=== PATIENT | female | born 1985 | race Caucasian/White ===

== ENCOUNTER 2019-01-08 08:48 | Emergency (ER) | payer BC, OTHER ==
[~2019-01-08] VITALS: Ht 149.8 cm; Wt 71.4 kg
--- NOTE | 2019-01-08 08:48 | NUR ---
Pt presents to ED with report of chest pain and has hx of months of occurances that she has [facility] to [facility], [facility], and [facility] clinic at [place]. Pt has negative exams of stress tests, imaging, and Holter Monitor. Pt is on Levaquin from [facility] WOODRUFF at [facility] for questionable infection. Pt seeks answers. Pt states chest pain left side anterior upper chest last night while sitting in bed. c/o SOA, denies sweating or nausea. Pt feels heart pounding in chest. Pt states she has had her thyroid labs done and are negative.
[2019-01-08] MEDS ORDERED: LORazepam INJ 2 MG/ML (ATIVAN) VIAL IVP ONE (09:00)
[2019-01-08] MEDS ORDERED: NS IV 1000 ML 1,000 ML IV SCH (09:00)
[2019-01-08 09:13] LABS: BASOPHILS % (AUTO) 1 % (0-10); EOSINOPHILS % (AUTO) 3 % (0-10); HEMATOCRIT 39 % (35-52); LYMPHOCYTES % (AUTO) 13 % (12-44); MEAN CORPUSCULAR HEMOGLOBIN 28 PG (25-34); MEAN CORPUSCULAR HGB CONC 33 G/DL (32-36); MEAN CORPUSCULAR VOLUME 84 FL (80-99); MEAN PLATELET VOLUME 10.6 FL (7.4-10.4); MONOCYTES % (AUTO) 5 % (0-12); PLATELET COUNT 307 10^3/uL (130-400); RED CELL DISTRIBUTION WIDTH 13.2 % (10.0-14.5); WHITE BLOOD COUNT 10.3 10^3/uL (4.3-11.0)
[2019-01-08 09:14] LABS: BASOPHILS # (AUTO) 0.1 10^3/uL (0.0-0.1); EOSINOPHILS # (AUTO) 0.3 10^3/uL (0.0-0.3); LYMPHOCYTES # (AUTO) 1.4 X 10^3 (1.0-4.0); MONOCYTES # (AUTO) 0.6 X 10^3 (0.0-1.0); NEUTROPHILS % (AUTO) 78 % (42-75)
--- NOTE | 2019-01-08 09:20 | NUR ---
Ativan 1 mg SIVP diluted given for her chest pain c/o per Dr order. Pt has an anxious appearance.
--- NOTE | 2019-01-08 09:23 | Diagnostic Imaging Report ---
INDICATION: Chest pain and tachycardia. Time of exam: 8:57 AM No prior studies are available for comparison. The heart size is normal. The pulmonary vascularity is unremarkable. The lungs are clear. No infiltrate, effusion or pneumothorax is detected. Impression: No acute cardiopulmonary process is detected. Dictated by: Dictated on workstation # [id number]
--- NOTE | 2019-01-08 09:34 | ED General ---
General Stated Complaint: CHEST PAIN History of Present Illness Date Seen by Provider: Jan 08, 2019 Time Seen by Provider: 09:30 Initial Comments Patient presenting to the emergency department for evaluation of chest pain that has been an off and on issue for years. She says this morning she felt intense chest pressure while she was driving her car. She had no exertional component to it. She said it occurred last night as well while she was trying to sleep. She says it feels like intense pressure that makes her short of breath and diaphoretic and makes her heart race. It is better now she appears nontoxic with normal vital signs. She says she has been seen multiple places for this including emergency rooms as well as admissions at [place] and [facility] her she received echocardiograms stress test and other testing and everything has come back normal. Allergies and Home Medications Allergies Coded Allergies: No Known Drug Allergies (Unverified , 01/08/19) Patient Home Medication List Home Medication List Reviewed: Yes Review of Systems Review of Systems Constitutional: no symptoms reported EENTM: no symptoms reported Respiratory: short of breath Cardiovascular: chest pain Gastrointestinal: no symptoms reported Genitourinary: no symptoms reported Musculoskeletal: no symptoms reported Skin: no symptoms reported Psychiatric/Neurological: No Symptoms Reported All Other Systems Reviewed Negative Unless Noted: Yes Physical Exam Vital Signs Vital Signs - First Documented 01/08/19 08:48 Temp 36.3 Pulse 94 Resp 20 B/P (MAP) 132/81 (98) O2 Delivery Room Air Capillary Refill : Height, Weight, BMI Height: '" Weight: lbs. oz. kg; BMI Method: General Appearance: No Apparent Distress, WD/WN HEENT: PERRL/EOMI Neck: Supple Respiratory: Lungs Clear, No Respiratory Distress Gastrointestinal: Non Tender, Soft Back: Normal Inspection Extremity: Normal Capillary Refill, Normal Inspection Neurologic/Psychiatric: Alert, Oriented x3 Skin: Warm/Dry Progress/Results/Core Measures Suspected Sepsis SIRS Temperature: Pulse: Respiratory Rate: Laboratory Tests 01/08/19 09:06: White Blood Count 10.3 Blood Pressure / Mean: Laboratory Tests 01/08/19 09:06: Creatinine 0.85, Platelet Count 307, Total Bilirubin 0.5 Results/Orders Lab Results Laboratory Tests Test 01/08/19 09:06 Range/Units White Blood Count 10.3 4.3-11.0 10^3/uL Red Blood Count 4.68 4.35-5.85 10^6/uL Hemoglobin 13.0 11.5-16.0 G/DL Hematocrit 39 35-52 % Mean Corpuscular Volume 84 80-99 FL Mean Corpuscular Hemoglobin 28 25-34 PG Mean Corpuscular Hemoglobin Concent 33 32-36 G/DL Red Cell Distribution Width 13.2 10.0-14.5 % Platelet Count 307 130-400 10^3/uL Mean Platelet Volume 10.6 H 7.4-10.4 FL Neutrophils (%) (Auto) 78 H 42-75 % Lymphocytes (%) (Auto) 13 12-44 % Monocytes (%) (Auto) 5 0-12 % Eosinophils (%) (Auto) 3 0-10 % Basophils (%) (Auto) 1 0-10 % Neutrophils # (Auto) 8.0 H 1.8-7.8 X 10^3 Lymphocytes # (Auto) 1.4 1.0-4.0 X 10^3 Monocytes # (Auto) 0.6 0.0-1.0 X 10^3 Eosinophils # (Auto) 0.3 0.0-0.3 10^3/uL Basophils # (Auto) 0.1 0.0-0.1 10^3/uL D-Dimer 0.30 0.00-0.49 UG/ML Sodium Level 138 135-145 MMOL/L Potassium Level 3.9 3.6-5.0 MMOL/L Chloride Level 99 98-107 MMOL/L Carbon Dioxide Level 27 21-32 MMOL/L Anion Gap 12 5-14 MMOL/L Blood Urea Nitrogen 7 7-18 MG/DL Creatinine 0.85 0.60-1.30 MG/DL Estimat Glomerular Filtration Rate > 60 BUN/Creatinine Ratio 8 Glucose Level 98 70-105 MG/DL Calcium Level 9.5 8.5-10.1 MG/DL Corrected Calcium 9.3 8.5-10.1 MG/DL Magnesium Level 1.8 1.6-2.4 MG/DL Total Bilirubin 0.5 0.1-1.0 MG/DL Aspartate Amino Transf (AST/SGOT) 14 5-34 U/L Alanine Aminotransferase (ALT/SGPT) 11 0-55 U/L Alkaline Phosphatase 92 40-136 U/L Troponin I < 0.30 <0.30 NG/ML Pro-B-Type Natriuretic Peptide 23.0 <75.0 PG/ML Total Protein 7.6 6.4-8.2 GM/DL Albumin 4.2 3.2-4.5 GM/DL Lipase 30 8-78 U/L My Orders Orders - EMELY HAYWOOD DO Fibrin Degradation Products (01/08/19 08:56) Cbc With Automated Diff (01/08/19 08:56) Comprehensive Metabolic Panel (01/08/19 08:56) Lipase (01/08/19 08:56) Magnesium (01/08/19 08:56) Probnp Fs (01/08/19 08:56) Troponin I (01/08/19 08:56) Chest 1 View Ap/Pa Only (01/08/19 08:56) Lorazepam Injection (Ativan Injection) (01/08/19 09:00) Ns Iv 1000 Ml (Sodium Chloride 0.9%) (01/08/19 09:00) Medications Given in ED Current Medications Medications Dose Ordered Sig/Danielito Route Start Time Stop Time Status Last Admin Dose Admin Lorazepam 1 mg ONCE ONCE IVP 01/08/19 09:00 01/08/19 09:01 DC 01/08/19 09:20 1 MG Vital Signs/I&O 01/08/19 08:48 Temp 36.3 Pulse 94 Resp 20 B/P (MAP) 132/81 (98) O2 Delivery Room Air Capillary Refill : Progress Note : Progress Note Patient with chest pressure along with diaphoresis tachycardia and shortness of breath. I suspect this could be anxiety related but will go ahead and do labs and imaging treat symptoms and observe. Initial workup was normal and I told her that we do need to do a repeat troponin level as she presented very quickly after her symptoms occurred. She refused stating that she feels well after receiving the Ativan and would like to go home. Told patient that I cannot completely rule out cardiac ischemia. The emergency room and the repeat negative troponin would help out pain decreasing the chances that her pain is from a cardiac etiology. Patient verbalized understanding and accepted the risks of and disability by not having a complete emergency room workup. Marti said I told her that cardiac ischemia is less likely than that he may be getting an EGD or seeing a psychiatrist may help her out. She was willing to be treated for anxiety I told her to follow with her primary care provider and get started on an antidepressant and I can prescribe when necessary Ativan if she feels the symptoms again she could try it. Patient told to follow primary care provider within 72 hours come back to the ED sooner with worsening pain shortness of breath or other general concerns. Patient aware and agreeable with plan for discharge and verbalized understanding of the above instructions. Departure Impression Primary Impression: Chest pain at rest Disposition: HOME, SELF-CARE Condition: Stable Departure-Patient Inst. Referrals: NO,LOCAL PHYSICIAN (PCP/Family) Primary Care Physician Patient Instructions: Chest Pain (DC) EEMLY HAYWOOD DO Jan 08, 2019 09:34
[2019-01-08 09:51] LABS: POTASSIUM 3.9 MMOL/L (3.6-5.0); SODIUM 138 MMOL/L (135-145)
[2019-01-08 09:52] LABS: ALANINE AMINOTRANSFERASE 11 U/L (0-55); ALBUMIN 4.2 GM/DL (3.2-4.5); ALKALINE PHOSPHATASE 92 U/L (40-136); BILIRUBIN,TOTAL 0.5 MG/DL (0.1-1.0); BUN/CREATININE RATIO 8; CALCIUM 9.5 MG/DL (8.5-10.1); CARBON DIOXIDE 27 MMOL/L (21-32); CHLORIDE 99 MMOL/L (98-107); CREATININE SERUM 0.85 MG/DL (0.60-1.30); GFR ESTIMATED > 60; GLUCOSE 98 MG/DL (70-105); LIPASE 30 U/L (8-78); MAGNESIUM 1.8 MG/DL (1.6-2.4); TOTAL PROTEIN 7.6 GM/DL (6.4-8.2)
[2019-01-08] MEDS ORDERED: LORA-405 SL (10:17)
[2019-01-08 10:42] VITALS: BP 94/53
--- NOTE | 2019-01-08 10:42 | NUR ---
Pt discharged at this time after 550 ml NS infused during ED stay and dose of Ativan 0.5 mg given earlier per eMAR. Pt reports the chest pain has reduced from "8" to "3". Pt required add'l reading and reiterating Dr's discharge plan as short supply script for Ativan SL given. Pt verbalizes understanding of instructions and reminders to follow up with HER PCP as she has been hru numerous ER's and has had some cardiac testing reported as negative stress test and negative Holter Monitor. Pt advised to avoid stimulants, i.e. cigarettes, caffeine, Energy drinks. reports pt was a heavy Dr Collier drinker and is cutting back. Quit smoking 2 mo ago.
== END 2019-01-08 10:42 | disposition home or self-care (01) ==
LOC: EDUNIT# 08:48 → ER FS 08:50
DX: R07.9 Chest pain, unspecified (principal)
CPT/HCPCS: 36415; 71045; 80053; 83690; 83735; 83880; 84484; 85025; 85379; 93005; 96361; 96374

== ENCOUNTER → 2019-02-15 | Outpatient (CLI) | payer BC ==
[~2019-02-15] MED LIST: CATHETER FLUSH 10 ML SYR IV PRN; HOLD METFORMIN - RECEIVED CONTRAST 20 ML VIAL IV SCH; IOHEXOL 350 MG/ML 100 ML (OMNIPAQUE 350) VIAL IV ONE; LORA-405 SL; NS 100 ML (IVPB) BAG IV ONE
--- NOTE | 2019-02-15 13:38 | Diagnostic Imaging Report ---
PROCEDURE: CT chest with contrast only. TECHNIQUE: Multiple contiguous axial images were obtained through the chest after administration of intravenous contrast. Auto Exposure Controls were utilized during the CT exam to meet ALARA standards for radiation dose reduction. INDICATION: Right anterior chest pain and lower lateral chest pain as well as shortness of breath. COMPARISON: No prior CT chest studies are available for comparison. FINDINGS: No axillary lymphadenopathy is seen. No mediastinal or hilar lymphadenopathy is detected. No pericardial or pleural fluid is identified. No pulmonary infiltrates, nodules, or masses are detected. There is no pneumothorax. Ribs appear to be intact. No rib fracture is seen. Upper abdomen is unremarkable. IMPRESSION: Unremarkable CT chest with contrast. No acute abnormality is detected. Dictated by: Dictated on workstation # [id number]
== END ==
LOC: RAD 12:00
PROVIDERS: ATTEND Nurse Practitioner Family
DX: R07.82 Intercostal pain (principal); R06.02 Shortness of breath
CPT/HCPCS: 71260

== ENCOUNTER → 2019-05-03 | Outpatient (CLI) | payer BC ==
[~2019-05-03] MED LIST changes: -CATHETER FLUSH 10 ML SYR IV PRN; -HOLD METFORMIN - RECEIVED CONTRAST 20 ML VIAL IV SCH; -IOHEXOL 350 MG/ML 100 ML (OMNIPAQUE 350) VIAL IV ONE; -NS 100 ML (IVPB) BAG IV ONE
== END ==
LOC: CARD 13:40
PROVIDERS: ATTEND Internal Medicine Interventional Cardiology
DX: E66.9 Obesity, unspecified (principal); R00.2 Palpitations; F17.210 Nicotine dependence, cigarettes, uncomplicated
CPT/HCPCS: 93306

== ENCOUNTER 2019-05-21 | Outpatient (RCR) | payer BC | END 2019-07-22 | disposition home or self-care (01) | LOC: CARD | PROVIDERS: ATTEND Internal Medicine Interventional Cardiology | DX: R00.2 Palpitations (principal); R55 Syncope and collapse ==

== ENCOUNTER → 2019-10-31 | Outpatient (CLI) | payer BC ==
[~2019-10-31] MED LIST changes: +CATHETER FLUSH 10 ML SYR IV PRN; +HOLD METFORMIN - RECEIVED CONTRAST 20 ML VIAL IV SCH; +IOHEXOL 350 MG/ML 100 ML (OMNIPAQUE 350) VIAL IV ONE; +NS 100 ML (IVPB) BAG IV ONE
--- NOTE | 2019-10-31 13:03 | Diagnostic Imaging Report ---
PROCEDURE: CT head without contrast. TECHNIQUE: Multiple contiguous axial images were obtained through the brain without the use of intravenous contrast. Auto Exposure Controls were utilized during the CT exam to meet ALARA standards for radiation dose reduction. INDICATION: Intermittent headache for 4 weeks. COMPARISON: No prior studies are available for comparison. FINDINGS: The ventricles and sulci are within normal limits. No sulcal effacement or midline shift is identified. No acute intra-axial or extra-axial hemorrhage is detected. The cisterns are patent. The visualized paranasal sinuses are clear. IMPRESSION: No acute intracranial process is detected. Dictated by: Dictated on workstation # [id number]
== END ==
LOC: RAD FS 11:56
PROVIDERS: ATTEND Nurse Practitioner
DX: R42 Dizziness and giddiness (principal); R51 Headache; R41.3 Other amnesia
CPT/HCPCS: 70450

== ENCOUNTER → 2019-11-01 | Outpatient (CLI) | payer BC ==
[2019-11-01] VITALS (28 sets, daily range): BP systolic 105–121; BP diastolic 3–89
[~2019-11-01] VITALS: Ht 58 cm; Wt 71.4 kg
[~2019-11-01] MED LIST changes: -CATHETER FLUSH 10 ML SYR IV PRN; -HOLD METFORMIN - RECEIVED CONTRAST 20 ML VIAL IV SCH; -IOHEXOL 350 MG/ML 100 ML (OMNIPAQUE 350) VIAL IV ONE; -NS 100 ML (IVPB) BAG IV ONE; +NS IV 1000 ML 1,000 ML IV ONE; +NS IV 1000 ML 1,000 ML ONE
--- NOTE | 2019-11-01 13:56 | Cardiology Tilt Table Test ---
Cardiology-Tilt Table Test Tilt Table Test Date 11/01/19 Baseline Vitals Vital Signs Date Time Temp Pulse Resp B/P (MAP) Pulse Ox O2 Delivery O2 Flow Rate FiO2 11/01/19 07:34 36.8 72 18 112/70 (84) 100 Room Air Vital Signs VS - Last 72 Hours, by Label 11/01/19 11/01/19 11/01/19 11/01/19 07:34 07:37 07:39 07:40 Temp 36.8 Pulse 72 71 71 70 Resp 18 18 18 18 B/P (MAP) 112/70 (84) 118/85 (96) 119/80 (93) Pulse Ox 100 100 100 100 O2 Delivery Room Air Room Air Room Air Room Air 11/01/19 11/01/19 11/01/19 11/01/19 07:41 07:42 07:43 07:44 Pulse 70 67 65 68 Resp 18 18 18 18 B/P (MAP) 113/82 (92) 113/82 (92) 121/82 (95) 117/83 (94) Pulse Ox 100 100 100 100 O2 Delivery Room Air Room Air Room Air Room Air 11/01/19 11/01/19 11/01/19 11/01/19 07:45 07:46 07:47 07:48 Pulse 67 69 70 69 Resp 18 18 18 18 B/P (MAP) 118/80 (93) 116/84 (95) 117/80 (92) 108/68 (81) Pulse Ox 100 100 100 100 O2 Delivery Room Air Room Air Room Air Room Air 11/01/19 11/01/19 11/01/19 11/01/19 07:49 07:50 07:51 07:52 Pulse 62 63 73 63 Resp 18 18 18 18 B/P (MAP) 108/72 (84) 109/68 (82) 108/68 (81) 109/89 (96) Pulse Ox 100 100 100 100 O2 Delivery Room Air Room Air Room Air Room Air 11/01/19 11/01/19 11/01/19 11/01/19 07:53 07:54 07:55 07:56 Pulse 62 65 73 65 Resp 18 18 18 18 B/P (MAP) 109/89 (96) 108/74 (85) 110/75 (87) 109/72 (84) Pulse Ox 100 100 100 100 O2 Delivery Room Air Room Air Room Air Room Air 11/01/19 11/01/19 11/01/19 11/01/19 07:57 07:58 07:59 08:00 Pulse 66 65 67 66 Resp 18 18 18 18 B/P (MAP) 107/74 (85) 108/73 (85) 107/73 (84) 111/75 (87) Pulse Ox 100 100 100 100 O2 Delivery Room Air Room Air Room Air Room Air 11/01/19 11/01/19 11/01/19 11/01/19 08:01 08:02 08:03 08:04 Pulse 67 66 70 69 Resp 18 18 18 18 B/P (MAP) 112/77 (89) 110/75 (87) 111/75 (87) 105/73 (84) Pulse Ox 100 100 100 100 O2 Delivery Room Air Room Air Room Air Room Air 11/01/19 08:05 Pulse 73 Resp 18 B/P (MAP) 105/3 (37) Pulse Ox 100 O2 Delivery Room Air Patient was tilted to 75 degrees for [10] minutes, then returned to supine position During test, patient was: asymptomatic In Conclusion;: Negative Tilt Table Test Corinne MIKE MD Nov 01, 2019 13:56
--- NOTE | 2019-11-01 13:56 | History & Physicial-Cardiolgy ---
HPI-Cardiology Cardiology Consultation: Date of Consultation 11/01/19 Date of Admission Attending Physician Corinne Muhammad MD Admitting Physician [facility] Consulting Physician Corinne MUHAMMAD MD HPI: Time Seen by a Provider: 08:00 Chief Complaint: Syncope Syncope Review of Systems-Cardiology Review of Systems Constitutional: As described under HPI; No As described under HPI, No no symptoms reported, No chills, No fever, No lightheadedness Eyes: No As described under HPI, No no symptoms reported, No blindness, No blurred vision, No contact lenses, No drainage, No decreased acuity, No foreign body sensation, No pain, No vision change Ears/Nose/Throat: No As described under HPI, No no symptoms reported, No chronic hearing loss, No ear discharge, No ear pain, No nasal drainage, No ulcerations Respiratory: No no symptoms reported; As described under HPI; No As described under HPI, No cough, No orthopnea, No shortness of breath, No SOB with excertion Cardiovascular: No no symptoms reported; As described under HPI; No As described under HPI, No chest pain, No edema, No irregular heart rate, No lightheadedness, No palpitations; syncope Gastrointestinal: No no symptoms reported, No As described under HPI, No abdomen distended, No abdominal pain, No blood streaked bowels, No constipation, No diarrhea, No nausea, No vomiting, No stool coloration changes Genitourinary: No As described under HPI, No burning, No dysuria, No discharge, No frequency, No flank pain, No hematuria, No urgency : Yes : No Skin: No rash, No skin related problems, No ulcerations Psychiatric/Neurological: No anxiety, No depression, No seizure, No focal weakness, No syncope Hematologic: No bleeding abnormalities [id number] Hx Patient Social History Alcohol Use: Denies Use Recreational Drug Use: No Smoking Status: Former Smoker Type Used: Cigarettes 2nd Hand Smoke Exposure: Yes Recent Foreign Travel: No Immunizations Up To Date Tetanus Booster (TDap): Unknown Past Medical History PMH As described under Assessment. Allergies and Home Medications Allergies Coded Allergies: No Known Drug Allergies (Unverified , 01/08/19) Home Medications Lorazepam 1 Mg Tablet, 1 MG SL Q6H PRN for ANXIETY Prescribed by: EMELY HAYWOOD on 01/08/19 1017 Patient Home Medication List Home Medication List Reviewed: Yes Physical Exam-Cardiology Physical Exam Vital Signs/I&O 11/01/19 11/01/19 11/01/19 11/01/19 07:34 07:37 07:39 07:40 Temp 36.8 Pulse 72 71 71 70 Resp 18 18 18 18 B/P (MAP) 112/70 (84) 118/85 (96) 119/80 (93) Pulse Ox 100 100 100 100 O2 Delivery Room Air Room Air Room Air Room Air 11/01/19 11/01/19 11/01/19 11/01/19 07:41 07:42 07:43 07:44 Pulse 70 67 65 68 Resp 18 18 18 18 B/P (MAP) 113/82 (92) 113/82 (92) 121/82 (95) 117/83 (94) Pulse Ox 100 100 100 100 O2 Delivery Room Air Room Air Room Air Room Air 11/01/19 11/01/19 11/01/19 11/01/19 07:45 07:46 07:47 07:48 Pulse 67 69 70 69 Resp 18 18 18 18 B/P (MAP) 118/80 (93) 116/84 (95) 117/80 (92) 108/68 (81) Pulse Ox 100 100 100 100 O2 Delivery Room Air Room Air Room Air Room Air 11/01/19 11/01/19 11/01/19 11/01/19 07:49 07:50 07:51 07:52 Pulse 62 63 73 63 Resp 18 18 18 18 B/P (MAP) 108/72 (84) 109/68 (82) 108/68 (81) 109/89 (96) Pulse Ox 100 100 100 100 O2 Delivery Room Air Room Air Room Air Room Air 11/01/19 11/01/19 11/01/19 11/01/19 07:53 07:54 07:55 07:56 Pulse 62 65 73 65 Resp 18 18 18 18 B/P (MAP) 109/89 (96) 108/74 (85) 110/75 (87) 109/72 (84) Pulse Ox 100 100 100 100 O2 Delivery Room Air Room Air Room Air Room Air 11/01/19 11/01/19 11/01/19 11/01/19 07:57 07:58 07:59 08:00 Pulse 66 65 67 66 Resp 18 18 18 18 B/P (MAP) 107/74 (85) 108/73 (85) 107/73 (84) 111/75 (87) Pulse Ox 100 100 100 100 O2 Delivery Room Air Room Air Room Air Room Air 11/01/19 11/01/19 11/01/19 11/01/19 08:01 08:02 08:03 08:04 Pulse 67 66 70 69 Resp 18 18 18 18 B/P (MAP) 112/77 (89) 110/75 (87) 111/75 (87) 105/73 (84) Pulse Ox 100 100 100 100 O2 Delivery Room Air Room Air Room Air Room Air 11/01/19 08:05 Pulse 73 Resp 18 B/P (MAP) 105/3 (37) Pulse Ox 100 O2 Delivery Room Air Capillary Refill : Constitutional: appears stated age; No apparent distress; well-developed, well- nourished HEENT: PERRL; No discharge; hearing is well preserved, oral hygience is good; No ulceration, No xanthelasmas are seen Neck: No carotid bruit; carotid pulses are 2 + bilaterally Respiratory: chest is bilaterally symmetric, lungs clear to auscultation Cardiovascular: regular rate-rhythm, S1 and S2 Gastrointestinal: soft, audible bowel sounds; No spleenomegaly Rectal: deferred Extremities: normal inspection; No clubbing, No cyanosis, No significant edema Neurologic/Psychiatric: no motor/sensory deficits, alert, normal mood/affect, oriented x 3, power is 5/5 both on sides Skin: No rash, No ulcerations A/P-Cardiology Assessment/Admission Diagnosis Syncope Admission Status: Observation Plan Tilt table testing is recommended. Corinne MUHAMMAD MD Nov 01, 2019 13:56
== END ==
LOC: CARD 07:16
PROVIDERS: ATTEND Internal Medicine Interventional Cardiology
DX: R55 Syncope and collapse (principal); R00.2 Palpitations; Z87.891 Personal history of nicotine dependence
CPT/HCPCS: 93660